=== PATIENT | male | born 1990 | race Caucasian/White ===

== ENCOUNTER 2023-09-12 19:47 | Emergency (ER) | payer BC, SELFPAY ==
[2023-09-12 20:08] VITALS: BP 140/100; PULSE 111; RESP 16; O2SAT 98; BMI 26.4
--- NOTE | 2023-09-12 20:17 | ED_ITS ---
HPI - General Adult General Chief complaint: Difficulty Swallowing Stated complaint: Chunk of meat in throat-no diff breathing Time Seen by Provider: 09/12/23 20:11 History of Present Illness HPI narrative: This 33-year-old male comes in reporting a food bolus stuck in his esophagus. He was eating some meat and now is unable to swallow. He is frequently spitting and shows no sign of any thing passing into his stomach. He states that he has not had problems like this in the past. He is otherwise in good health. Related Data Home Medications Medication Instructions Recorded Confirmed No Known Home Medications 09/12/23 09/12/23 Allergies Allergy/AdvReac Type Severity Reaction Status Date / Time No Known Drug Allergies Allergy Verified 09/12/23 20:10 Review of Systems Status of ROS: Reports: 10 or more systems reviewed and unremarkable except as noted in History and below Narrative: Constitutional: No fevers, no weight gain or loss. Eyes: No discharge. No vision changes. HENT: No congestion, no sore throat, no ear pain. Cardiovascular: No chest pain, no palpitations. Respiratory: No shortness of breath, no wheezes, no cough. Gastrointestinal: No abdominal pain, no vomiting, no diarrhea. Genitourinary: No dysuria, no hematuria. Musculoskeletal: Normal range of motion. Skin: No rashes, no pruritis. Neurological: No dizziness, weakness, sensory change, speech change. Endo/Heme/Allergies: No bruising or bleeding. No polydipsia. Pysch: no suicidality, no anxiety, no insomnia. All other systems reviewed and are negative. PFSH PFS Social History Smoking Status: Never smoker Do you use any of these nicotine containing products: None Second hand tobacco smoke exposure: No How often do you have a drink containing alcohol: monthly or less How often do you have six or more drinks on one occasion: Never AUDIT-C Alcohol total score: 1 Non-prescribed substance use: denies use service: No Exam Narrative: Exam Narrative: Constitutional: Well-developed, well-nourished, no acute distress. HEENT: Normocephalic, atraumatic. Neck: Normal range of motion. Nontender. Supple. Heart: Regular. No murmurs. Normal rate. Intact distal pulses. Lungs: Clear to auscultation. No chest discomfort. No wheezes, rhonchi, or rales. Abdomen: Normal bowel sounds. Nontender. No rebound tenderness. Genitalia: Deferred. Back: No midline tenderness. Normal range of motion. Extremities: Normal range of motion. No injury. Skin: Intact. No rash. Warm. No erythema or pallor. Neurologic: No altered sensation. No weakness. Alert and oriented. Psychiatric: No suicidality. No anxiety or depression. No insomnia. Nursing notes and vitals signs are reviewed. Const: Vital Signs, click to edit/add: Vital Signs - 24 hr 09/12/23 20:08 09/12/23 21:11 Temperature 98.0 F Pulse Rate [Left P ulse Oximeter] 111 H 80 Respiratory Rate 16 16 Blood Pressure [Le ft Upper Arm] 140/100 H 135/90 H Pulse Oximetry 98 98 Oxygen Delivery Me thod Room Air Room Air Course Vital Signs Vital signs: Initial Vital Signs Pulse Rate 111 H 09/12/23 20:08 Respiratory Rate 16 09/12/23 20:08 Blood Pressure 140/100 H 09/12/23 20:08 Blood Pressure Mean 113 H 09/12/23 20:08 Blood Pressure Position Sitting 09/12/23 20:08 Pulse Oximetry 98 09/12/23 20:08 Oxygen Delivery Method Room Air 09/12/23 20:08 Vital Signs Pulse Rate 111 H 09/12/23 20:08 Respiratory Rate 16 09/12/23 20:08 Blood Pressure 140/100 H 09/12/23 20:08 Pulse Oximetry 98 09/12/23 20:08 Oxygen Delivery Method Room Air 09/12/23 20:08 Temperature 98.0 F 09/12/23 21:11 Pulse Rate 80 09/12/23 21:11 Respiratory Rate 16 09/12/23 21:11 Blood Pressure 135/90 H 09/12/23 21:11 Pulse Oximetry 98 09/12/23 21:11 Oxygen Delivery Method Room Air 09/12/23 21:11 Medications Administered Medications: Discontinued Medications Generic Name Dose Route Start Last Admin Trade Name Freq PRN Reason Stop Dose Admin Glucagon 1 mg 09/12/23 20:15 09/12/23 20:58 Glucagon,Human Recombinant 1 Mg/Ml Vial IV 09/12/23 20:16 1 mg ONCE ONE Administration Nitroglycerin 0.4 mg 09/12/23 20:15 09/12/23 20:56 Nitroglycerin 0.4 Mg Tab.Subl SUBLINGUAL 09/12/23 20:16 0.4 mg ONCE ONE Administration Simethicone/Sodium Bicarb/Citric Ac 1 each 09/12/23 20:15 09/12/23 21:04 Simethicone/Sod Bicarb/Cit Ac 1 Each Gran.Ef.Pk PO 09/12/23 20:16 1 each ONCE ONE Administration Medical Decision Making MDM Narrative Medical decision making narrative: This patient comes in with a food bolus in his esophagus. An IV was established where he received 1 mg of glucagon. He also received sublingual nitroglycerin and pop rocks. He was able to swallow and push the food through. He is okay to be discharged home. I advised him to follow-up with endoscopy if symptoms are recurrent. Discharge Plan Discharge Clinical Impression: Esophagus, foreign body Patient Disposition: Home, Self-Care Condition: Improved Additional Instructions: Activity as tolerated. If symptoms are recurrent follow-up with endoscopy for a dilation. Return if unable to swallow. Prescriptions: No Action No Known Home Medications Follow Up/Referrals: Provider,Not a Local [Primary Care Provider] - Stand Alone Forms: [employer] Info Instructions
[2023-09-12] MEDS: NITROGLYCERIN 0.4 MG TAB.SUBL SUBLINGUAL (20:56)
[2023-09-12] MEDS: GLUCAGON,HUMAN RECOMBINANT 1 MG/ML VIAL IV (20:58)
[2023-09-12] MEDS: SIMETHICONE/SOD BICARB/CIT AC 1 EACH GRAN.EF.PK PO (21:04)
[2023-09-12 21:11] VITALS: BP 135/90; PULSE 80; RESP 16; TEMP 36.7; O2SAT 98
== END 2023-09-12 21:42 | disposition home or self-care (01) ==
PROVIDERS: Emergency Provider Emergency Medicine Emergency Medical Services
DX: T18.128A Food in esophagus causing other injury, initial encounter (principal)
CPT/HCPCS: 99283; 99284; A9270; J1610

== ENCOUNTER 2024-11-10 09:41 | Emergency (ER) | payer BC, SELFPAY ==
[2024-11-10 09:47] VITALS: BP 141/96; PULSE 78; RESP 18; TEMP 36.7; O2SAT 99; BMI 22.4
--- OUTSIDE RECORDS SUMMARY | 2024-11-10 09:51 | XMS_ITS | Clinical Summary ---
Author Organization [employer] [facility] Address [address] [place] [id number] Care Team Providers Care Youth Worker Name Role Phone Clinic, No Pcp Or Primary Care Provider Unavaila ble Unknown, Doctor Unavailable Unavailable Allergies No known active allergies Medications No known medications Active Problems No known active problems Immunizations Immunization Administration Dates Next Due DTP 04/02/1990, 9,1988,05/02 HIB PRP-OMP (PedvaxHIB) 04/02/1990,04/02/1990 Hepatitis B (Peds) 09/01/1999,03/08/1999, 999 MMR 12/18/2000,09/03/1989 Meningococcal Vaccine 07/29/2006 Meningococcal Vaccine (Menactra) 07/29/2006 Oral Polio Vaccine 04/02/1990, 9,1988,05/02 Td, Preservative Free (age >= 7 Years) 2,12/25/2001 Family History Medical History Relation Name Comments No Known Problems Father Other Mother bicuspid aortic valve No Known Problems Sister Relation Name Status Comments Father Alive Mother Alive Sister Alive Social History Tobacco Use Types Packs/Day Years Used Date Smoking Tobacco: Never Smokeless Tobacco: Current Chew Tobacco Cessation:Ready to Q uit: Not Asked; Counseling Given: Not Answered Alcohol Use Standard Drinks/Week Comments Yes 0 (1 standard drink = 0.6 oz pur e alcohol) Sex and Gender Information Value Date Recorded Sex Assigned at Not on file Legal Sex Male 5:24 AM [employer] DIRECT[employer] Gender Identity Not on file Sexual Orientation Not on file Obstetrics History Last Filed Vital Signs Vital Sign Reading Time Taken Comments Blood Pressure 134/84 10/24/2022 11:35 AM CDT Pulse 84 10/24/2022 11:35 AM CDT Temperature 36.4 C (97.5 F) 10/21/2022 10:13 AM CDT Respiratory Rate 16 10/21/2022 10:1 3 AM CDT Oxygen Saturation 99% 10/24/2022 11: 35 AM CDT Inhaled Oxygen Concentration - - Weight 89.7 kg (197 lb 12.8 oz) 023 11:35 AM CDT Height 185.4 cm (6' 1) 10/21/2022 10:1 3 AM CDT Body Mass Index 26.1 10/21/2022 10:13 AM CDT Plan of Treatment Health Maintenance Due Date Last Done Comments Depression screening for age 12+ 2000 HIV for age 15-65 2003 BMI (ht and wt on same day) for age 18+ 2006 Hepatitis C screening for ag e 18-79 2006 Tetanus booster 06/18/2021 06/18/2011, 12/25/2001 Lipids for age 35-44 2023 COVID-19 vaccine series ( season) 2023 Influenza Vaccine (#1) 2024 Hepatitis B series for 19+ Completed 08/31, 03/08/1999, 02/01/1999 Pneumococcal series for age 6-49 Aged Out No longer eligible b ased on patient's age to complete this topic Insurance [facility] * Guarantor: [employer] Account Type Relation to Patient Date of Phone Billing Address [employer] Employer 04/29[birth year][address] [place] [address] Care Teams Youth Worker Relationship Specialty Start Date End Date Clinic, No Pcp Or . PCP - General 10/21/22 Unknown, Doctor . 10/21/22
--- NOTE | 2024-11-10 10:08 | CRLHL7_ITS ---
For Patients: As a result of the Century Cures Act, medical imaging exams and procedure reports are released immediately into your electronic medical record. You may view this report before your referring provider. If you have questions, please contact your health care provider. Indication: Chest pain Technique: PA and lateral views of the chest. Comparison: None. Findings: Normal cardiomediastinal silhouette. No focal consolidation, pleural effusions, or visualized pneumothorax. Impression: No acute cardiopulmonary disease. Dictated by Zach Root MD @ 11/10/2024 10:41:32 AM (Electronically Signed)
--- NOTE | 2024-11-10 10:20 | ED.GENADULT ---
HPI - General Adult General Chief complaint: Chest Pain Stated complaint: chest pains Time Seen by Provider: 11/10/24 09:44 Source: patient Mode of arrival: ambulatory Limitations: no limitations History of Present Illness HPI narrative: 34-year-old male presenting today with chest pain that is been present for the last 5 hours. Pain is located just left of center the anterior chest wall. Putting his arm over his head or taking a deep breath makes the pain better. Nothing really makes it worse. It is the dull and constant. He denies feeling short of breath, dizzy or diaphoretic. He denies nausea or vomiting. He denies any recent illness. He denies coughing. No recent travel. He denies any palpitations. Grandfather of a heart attack in his 70s. No coronary artery disease in mother and father. Patient does not smoke or use recreational drugs. He is generally healthy, does not take any medications. Related Data Home Medications ?Medication ?Instructions ?Recorded ?Confirmed No Known Home Medications 09/12/23 11/10/24 Allergies Allergy/AdvReac Type Severity Reaction Status Date / Time No Known Drug Allergies Allergy Verified 11/10/24 09:51 Review of Systems Status of ROS: Reports: 10 or more systems reviewed and unremarkable except as noted in History and below [facility] Social History Smoking Status: Former smoker Do you use any of these nicotine containing products: None Second hand tobacco smoke exposure: No How often do you have a drink containing alcohol: 4 or more times a week AUDIT-C Alcohol total score: 4 Non-prescribed substance use: denies use service: No Exam Narrative: Exam Narrative: Well-nourished well-developed patient in no acute distress. Alert and oriented. Answers questions appropriately. Mood and affect are appropriate. Thoughts are goal oriented and rational. No tangential or magical thinking noted. Patient speaks in full sentences without needing to catch his breath. HEENT: Normocephalic atraumatic. Pupils are equally round reactive to light. Extraocular muscles are intact. Conjunctivae are moist without any icterus noted. Moist mucous membranes. Cardiovascular: Heart is regular rate and rhythm S1 and S2 are present without any murmurs. Lungs: Clear to auscultation bilaterally no wheezes rhonchi or rales are appreciated. Patient takes deep breaths without any discomfort. Cannot reproduce his pain with palpation of the chest wall. Abdomen: Soft and nontender nondistended with normal bowel sounds. Extremities: Bilateral lower extremities are without edema. Skin: Warm, dry, intact. Const: Vital Signs, click to edit/add: Vital Signs - 24 hr 11/10/24 09:47 11/10/24 10:39 Temperature 98.1 F Pulse Rate [Right Pulse Oximeter] 78 56 L Respiratory Rate 18 16 Blood Pressure [Ri ght Upper Arm] 141/96 H 133/88 Pulse Oximetry 99 100 Oxygen Delivery Me thod Room Air Room Air Course Course ED Course: EKG, read by me, shows normal sinus rhythm with a pulse of 68. Normal QRS, QTC and MD intervals. Workup showed mild hyponatremia, slightly low wbc's and rbc's, and a slightly increased AST-all consistent with daily alcohol use which the patient admits to. Aside from that no evidence of acute coronary syndrome, myocarditis or pericarditis, pneumonia, PE. Chest x-ray, read by me, shows no acute pathology. Vital Signs Vital signs: Initial Vital Signs Temperature 98.1 F 11/10/24 09:47 Temperature Source Temporal Artery Scan 11/10/24 09:47 Pulse Rate 78 11/10/24 09:47 Pulse Rhythm Regular 11/10/24 09:47 Pulse Strength 3+ Normal 11/10/24 09:47 Respiratory Rate 18 11/10/24 09:47 Blood Pressure 141/96 H 11/10/24 09:47 Blood Pressure Mean 111 H 11/10/24 09:47 Blood Pressure Position Sitting 11/10/24 09:47 Pulse Oximetry 99 11/10/24 09:47 Oxygen Delivery Method Room Air 11/10/24 09:47 Vital Signs Temperature 98.1 F 11/10/24 09:47 Pulse Rate 78 11/10/24 09:47 Respiratory Rate 18 11/10/24 09:47 Blood Pressure 141/96 H 11/10/24 09:47 Pulse Oximetry 99 11/10/24 09:47 Oxygen Delivery Method Room Air 11/10/24 09:47 Temperature 98.1 F 11/10/24 09:47 Pulse Rate 56 L 11/10/24 10:39 Respiratory Rate 16 11/10/24 10:39 Blood Pressure 133/88 11/10/24 10:39 Pulse Oximetry 100 07/15/25 10:39 Oxygen Delivery Method Room Air 11/10/24 10:39 Medications Administered Medications: Discontinued Medications Generic Name Dose Route Start Last Admin Trade Name Ambika PRN Reason Stop Dose Admin Ketorolac Tromethamine 60 mg 11/10/24 10:30 11/10/24 10:22 Ketorolac 60 Mg/2 Ml Inj IM 11/10/24 10:31 60 mg ONCE ONE Administration Medical Decision Making MDM Narrative Medical decision making narrative: 34-year-old male with with atypical chest pain, likely musculoskeletal in nature given that it changes with slight movement. Discussed symptomatic treatment. Daily alcohol use-discussed decreasing alcohol consumption day. Patient had no other questions current Lab Data Lab results reviewed: Yes I reviewed the patient's lab results Labs: Lab Results 11/10/24 Range/Units 10:20 WBC 3.25 L (4.50-11.00) K/uL RBC 4.27 L (4.30-5.90) m/uL Hgb 13.6 (13.5-17.5) gm/dL Hct 38.7 (37.0-53.0) % MCV 91 (80-100) fL MCH 32 (26-34) pg MCHC 35 (32-36) gm/dL RDW Coeff of [place] 11.2 L (11.5-15.5) % Plt Count 223 (140-440) K/uL Neut % (Auto) 60.4 (42.0-72.0) % Lymph % (Auto) 28.3 (20-44) % [place] % (Auto) 9.8 (0.0-11.0) % Eos % (Auto) 0.9 (0.0-7.0) % Baso % (Auto) 0.6 (0.0-3.0) % Neut # (Auto) 2.00 (1.7-7.0) K/uL Lymph # (Auto) 0.90 (0.90-2.90) K/uL [place] # (Auto) 0.30 (0.00-0.90) K/UL Eos # (Auto) 0.00 (0.00-0.50) K/uL Baso # (Auto) 0.00 (0.00-0.30) K/uL Abs Immat Gran (auto) 0.00 (0.00-0.30) K/uL Imm/Tot Granulo (auto) 0.0 % D-Dimer Quant (PE/DVT) < 0.27 (0.00-0.50) ug/ml Sodium 131 L (135-149) mmol/L Potassium 3.6 (3.6-5.1) mmol/L Chloride 99 (96-114) mmol/L Carbon Dioxide 28 (20-32) mmol/L Anion Gap 4 L (7-15) mEq/L BUN 7 (5-24) mg/dL Creatinine 0.7 (0.5-1.5) mg/dL Estimated Creat Clear 159.12 Estimated GFR 122 ml/min Glucose 96 (60-115) mg/dL Lactate 0.7 (0.5-1.9) mmol/L Calcium 9.3 (8.4-10.6) mg/dL Total Bilirubin 0.9 (0.1-1.5) mg/dL Direct Bilirubin 0.1 (0.0-0.5) mg/dL AST 43 H (12-35) U/L ALT 32 (4-50) U/L Alkaline Phosphatase 53 (40-150) U/L C-Reactive Protein < 0.5 L (0.5-1.0) mg/dL Total Protein 6.5 (6.0-8.3) g/dL Albumin 4.3 (3.3-5.0) g/dL POC Troponin I 0.00 L (0.01-0.04) ng/ml Imaging Data Chest x-ray: Attestation: I have reviewed the pertinent imaging results. Radiologist's impression: Technique: PA and lateral views of the chest. Comparison: None. Findings: Normal cardiomediastinal silhouette. No focal consolidation, pleural effusions, or visualized pneumothorax. Impression: No acute cardiopulmonary disease ECG Data Attestation: I personally reviewed and interpreted this ECG as follows: Discharge Plan Discharge Clinical Impression: Atypical chest pain, Hyponatremia Patient Disposition: Home, Self-Care Condition: Stable Additional Instructions: The cause of your chest pain is likely musculoskeletal in nature. Recommend ibuprofen 600 mg 3 times a day as needed/as directed - take with meals. Also recommend reducing daily alcohol use. Return to the emergency department if your pain worsens, you develop shortness of breath or vomiting. Follow-up with your primary care provider as needed. Prescriptions: No Action No Known Home Medications Follow Up/Referrals: Provider,Not a Local [Primary Care Provider, Family Practice] Stand Alone Forms: [employer] Info Instructions
[2024-11-10 10:27] LABS: Lactate* 0.7 mmol/L (0.5-1.9)
[2024-11-10 10:28] LABS: Hematocrit 38.7 % (37.0-53.0); Hemoglobin* 13.6 gm/dL (13.5-17.5); Immature Granulocytes Abs Auto 0.00 K/uL (0.00-0.30); Immature Granulocytes Pct Auto 0.0 %; Mean Corpuscular HGB Conc 35 gm/dL (32-36); Mean Corpuscular Hemoglobin 32 pg (26-34); Mean Corpuscular Volume 91 fL (80-100); RDW Coefficient of Variation % 11.2 % (11.5-15.5); Red Blood Count 4.27 m/uL (4.30-5.90); White Blood Count* 3.25 K/uL (4.50-11.00)
[2024-11-10 10:30] LABS: Lymphocytes Absolute Auto 0.90 K/uL (0.90-2.90); Slide Review Reflex No
[2024-11-10 10:35] LABS: Troponin, Point-of-Care* 0.00 ng/ml (0.01-0.04)
[2024-11-10 10:39] VITALS: BP 133/88; PULSE 56; RESP 16; O2SAT 100
[2024-11-10 10:51] LABS: Albumin* 4.3 g/dL (3.3-5.0)
[2024-11-10 10:52] LABS: Chloride* 99 mmol/L (96-114); Potassium* 3.6 mmol/L (3.6-5.1); Sodium* 131 mmol/L (135-149)
[2024-11-10 10:54] LABS: Blood Urea Nitrogen* 7 mg/dL (5-24); Creatinine* 0.7 mg/dL (0.5-1.5); Est. Creatinine Clearance* 159.12; Estimated Glomerular Filt Rate 122 ml/min
[2024-11-10 10:55] LABS: Alanine Aminotransferase* 32 U/L (4-50); Alkaline Phosphatase* 53 U/L (40-150); Anion Gap 4 mEq/L (7-15); Aspartate Amino Transferase* 43 U/L (12-35); Bilirubin Direct* 0.1 mg/dL (0.0-0.5); Bilirubin Total* 0.9 mg/dL (0.1-1.5); Calcium* 9.3 mg/dL (8.4-10.6); Carbon Dioxide* 28 mmol/L (20-32); Glucose* 96 mg/dL (60-115); Total Protein* 6.5 g/dL (6.0-8.3)
[2024-11-10 11:21] LABS: D Dimer Quantitative* < 0.27 ug/ml (0.00-0.50)
== END 2024-11-10 11:55 | disposition home or self-care (01) ==
PROVIDERS: Emergency Provider Family Medicine
DX: R07.9 Chest pain, unspecified (principal); E87.1 Hypo-osmolality and hyponatremia
CPT/HCPCS: 36415; 71046; 80048; 80076; 83605; 84484; 85025; 85379; 86140; 93005; 96372; 99284; J1885